=== PATIENT | female | born 1990 | race American Indian/Alaskan Native ===

== ENCOUNTER → 2017-10-25 | Emergency (ER) | payer OTHER ==
[~2017-10-25] VITALS: Ht 167.6 cm; Wt 120.7 kg
[~2017-10-25] MED LIST: AVIANE1 EACH PO; BIRTH CONTROL; IBUPROFEN800 MG PO; KEFLEX500 MG PO; LORAZEPAM1 MG PO; NAPROSYN500 MG PO; NORCO 10-325 T1 EACH PO; ROBAXIN-750750 MG PO; ZOFRAN ODT4 MG PO
--- NOTE | 2017-10-26 15:31 | EKG ---
[facility] [address] [facility] [place] [address] Signed Normal sinus rhythm Normal ECG No previous ECGs available Confirmed by MINNIE BARAJAS MD ([id number]) on 10/26/2017 3:31:11 PM Electronically Signed By: MINNIE BARAJAS MD 10/26/17 1531 PATIENT NAME: JOAO GUAMAN CHIQUITA Electrocardiogram DATE OF : [birth year] PHYSICIAN: MINNIE BARAJAS MD REPORT #: [id number] REPORT IS CONFIDENTIAL AND NOT TO BE RELEASED WITHOUT AUTHORIZATION
== END ==
LOC: ED 16:14
DX: R07.9 Chest pain, unspecified (principal); F41.9 Anxiety disorder, unspecified; R06.4 Hyperventilation; F17.200 Nicotine dependence, unspecified, uncomplicated; Z79.899 Other long term (current) drug therapy
CPT/HCPCS: 71046; 93005; 93010; 96372; 99283; J1885

== ENCOUNTER 2018-04-24 04:16 | Emergency (ER) | payer OTHER ==
[~2018-04-24] VITALS: Ht 167.6 cm; Wt 122.5 kg
[2018-04-24] MEDS ORDERED: ADVAIR HFA 115-12 GM INH (04:26)
== END 2018-04-24 06:59 | disposition home or self-care (01) ==
LOC: ED 04:16
DX: K59.00 Constipation, unspecified (principal); J45.909 Unspecified asthma, uncomplicated; F41.9 Anxiety disorder, unspecified; Z87.891 Personal history of nicotine dependence; Z79.899 Other long term (current) drug therapy
CPT/HCPCS: 74177; 80053; 81001; 83690; 84703; 85025; 96374; 96375; 99284-25; J2270; J2405; Q9967

== ENCOUNTER 2020-04-09 12:14 | Emergency (ER) | payer OTHER ==
[~2020-04-09] VITALS: Ht 167.6 cm; Wt 142.9 kg
[~2020-04-09 12:14] MED LIST changes: +ADVAIR HFA 115-12 GM INH
[2020-04-09] MEDS ORDERED: CETIRIZINE HCL10 MG PO (12:43)
[2020-04-09] MEDS ORDERED: GEN7T1 EACH TP (12:44)
[2020-04-09] MEDS ORDERED: CYCLOBENZAPRINE10 MG PO (15:54)
[2020-04-09] MEDS ORDERED: LIDODERM1 EACH TOP (15:54)
== END 2020-04-09 17:31 | disposition home or self-care (01) ==
LOC: ED 12:14
DX: M54.5 Low back pain (principal); F41.9 Anxiety disorder, unspecified; J45.909 Unspecified asthma, uncomplicated; Z87.891 Personal history of nicotine dependence; Z88.8 Allergy status to other drugs, medicaments and biological substances
CPT/HCPCS: 96372; 99283; A9270; J1885

== ENCOUNTER 2020-08-09 12:54 | Emergency (ER) | payer OTHER ==
[~2020-08-09] VITALS: Ht 167.6 cm; Wt 142.9 kg
[~2020-08-09 12:54] MED LIST changes: +CETIRIZINE HCL10 MG PO; +CYCLOBENZAPRINE10 MG PO; +GEN7T1 EACH TP; +LIDODERM1 EACH TOP
[2020-08-09] MEDS ORDERED: HYDROCODON-ACE1 EA10 PO (17:45)
[2020-08-09] MEDS ORDERED: PRILOSEC OTC20 MG PO (17:45)
== END 2020-08-09 18:15 | disposition home or self-care (01) ==
LOC: ED 12:54
DX: K21.9 Gastro-esophageal reflux disease without esophagitis (principal); N20.0 Calculus of kidney; J45.909 Unspecified asthma, uncomplicated; Z87.891 Personal history of nicotine dependence; Z79.899 Other long term (current) drug therapy
CPT/HCPCS: 74176; 80053; 81001; 83690; 84703; 85025; 96374; 96375; 99284-25; J1885; J2270; J2405

== ENCOUNTER 2021-09-29 06:36 | Emergency (ER) | payer OTHER ==
[~2021-09-29] VITALS: Ht 167.6 cm; Wt 156.0 kg
[~2021-09-29 06:36] MED LIST changes: +HYDROCODON-ACE1 EA10 PO; +PRILOSEC OTC20 MG PO
== END 2021-09-29 10:45 | disposition home or self-care (01) ==
LOC: ED 06:36
DX: U07.1 COVID-19 (principal); J44.9 Chronic obstructive pulmonary disease, unspecified; Z87.891 Personal history of nicotine dependence; Z79.899 Other long term (current) drug therapy
CPT/HCPCS: 36415; 80053; 84703; 85025; 87502; 96361; 96374; 96375; 99284-25; C9803; J1170; J1885; J2405; J7030; U0003

== ENCOUNTER 2022-01-12 07:04 | Emergency (ER) | payer OTHER ==
[~2022-01-12] VITALS: Ht 167.6 cm; Wt 153.0 kg
[2022-01-12] MEDS ORDERED: VENTOLIN HFA18 GM INH (07:22)
[2022-01-12] MEDS ORDERED: PREDNISONE20 MG PO (09:59)
[2022-01-12] MEDS ORDERED: NAPROSYN500 MG PO (09:59)
--- NOTE | 2022-01-14 19:28 | EKG ---
[facility] [place] [facility] [address] [facility] [place] [address] Signed Normal sinus rhythm Nonspecific T wave abnormality Abnormal ECG When compared with ECG of 25-OCT-2017 16:18, Nonspecific T wave abnormality now evident in Lateral leads Confirmed by Destiny Jimenez MD () on 01/14/2022 7:27:52 PM Electronically Signed By: DESTINY JIMENEZ MD 01/14/221927 PATIENT NAME: GUAMANJOAO Electrocardiogram DATE OF : [birth year] PHYSICIAN: DESTINY JIMENEZ MD REPORT #: [id number] REPORT IS CONFIDENTIAL AND NOT TO BE RELEASED WITHOUT AUTHORIZATION
== END 2022-01-12 10:17 | disposition home or self-care (01) ==
LOC: ED 07:04
DX: U07.1 COVID-19 (principal); R09.1 Pleurisy; J45.909 Unspecified asthma, uncomplicated; Z87.891 Personal history of nicotine dependence; Z79.899 Other long term (current) drug therapy
CPT/HCPCS: 36415; 71045; 80053; 83690; 84484; 85025; 85379; 87502; 93005; 93010; 94664; 96374; 96375; 99285-25; C9803; J1100; J1885; U0003

== ENCOUNTER 2022-08-03 06:56 | Day surgery (SDC) | payer OTHER ==
[2022-07-27 09:04] VITALS: BP 125/72
[~2022-08-03] VITALS: Ht 167.6 cm; Wt 154.5 kg
[~2022-08-03 06:56] MED LIST changes: +PREDNISONE20 MG PO; +VENTOLIN HFA18 GM INH
[2022-08-03 07:14] VITALS: BP 108/66
--- NOTE | 2022-08-03 09:59 | NUR ---
08/03/22 0959 Eileen Fairbanks SN 0943 PATIENT ARRIVES TO PACU AWAKE BUT CONFUSED. CRYING AND DIFFICULT TO REDIRECT. RESP EVEN AND UNLABORED. MASK AT 8 LITERS. WHEN ASKED IF HAVING PAIN UNABLE TO VERBALIZE BUT HELD UP 10 FINGERS. USE OF BEDSIDE SUCTION.
--- NOTE | 2022-08-03 10:46 | NUR ---
PT ALERT, ORIENTED AND VERY ANXIOUS ABOUT TODAY. SPENT TIME DEBRIEFING, COMFORTING AND GIVING SUPPORT. HAD PRAYER WITH PT, REQUESTED PRAYER, A WARM BLANKET. RIDE ARRANGED FROM [facility]. VERN MOREL WILL CHECK ON PT AT HOME. DATA MIGRATION LEAD WILL VISIT WITH PT, HELP WITH ANXIOUSNESS. WILL FOLLOW
[2022-08-03 11:10] VITALS: BP 127/62
[2022-08-03 11:54] VITALS: BP 130/75
--- NOTE | 2022-08-03 11:57 | NUR ---
1110: PT RETURNS TO UNIT VIA STRETCHER FROM PACU. AWAKE AND ALERT ON ARRIVAL. CHOOSES NOT TO SPEAK, WRITES ON PAPER TO COMMUNICATE. WHIMPERS WITH PAIN. WRITES 6/10 PAIN LEVEL. DISCUSSED PAIN MANAGEMENT AND PT NODS. ICE WATER AND JELLO PROVIDED. VSS, RESP EVEN AND UNLABORED. O2 SAT STABLE, >94% ON 2L VIA NC. SCDS IN PLACE. WARM BLANKETS PROVIDED REQUESTED. NO FURTHER NEEDS AT THIS TIME
--- NOTE | 2022-08-03 11:58 | NUR ---
LE 1140 INTO PATIENT ROOM. PATIENT ACTIVELY VOMITING. 400 EMESIS GREEN/ORANGE IN COLOR. PATIENT NEEEDING TO USE THE RESTROOM. BEDSIDE COMMODE. PATIENT VOIDED 300 CLEAR AND YELLOW URINE.
--- NOTE | 2022-08-03 12:01 | NUR ---
1145: TC PLACED TO MD KENNETH AND NEW ORDER RECEIVED TO ADMINISTERED 4MG ZOFRAN IV ONCE. NO FURTHER ORDERS AT THIS TIME 1150: TC PLACED TO SISTER REQUESTED BY PT. UPDATE PROVIDED AND SISTER TO ARRIVE AROUND 1300. [place] TAKE [place] HOME [place]
--- NOTE | 2022-08-03 12:43 | NUR ---
LE 1209 PATIENT STATES NAUSEA HAS IMPROVED. PATIENT PAIN STILL A 9/10 AND LORTAB ELIXIR GIVEN. PATIENT TEARFUL WRITING "IT HURTS" ON A CLIPBOARD. PATIENT GIVEN BEAR HUGGER AND LIGHTS TURNED OFF IN ROOM. PATIENT ALERT AND ORIENTED. BREATHING EQUAL AND UNLABORED. OXYGEN SATURATIONS ABOVE 90% ON ROOM AIR. SCD'S ON AND IVF INFUSING. NO RED DRAINAGE AT THIS TIME FROM SURGICAL SITE. CALL LIGHTWITHIN REACH NO FUTHER NEEDS. NO QUESTIONS AT THIS TIME.
[2022-08-03 13:05] VITALS: BP 132/72
--- NOTE | 2022-08-03 15:17 | NUR ---
LE 1245 PATIENT WRITES ON CLIPBOARD "MY PAIN FEELS BETTER." PATIENT IS ALERT AND ORIENTED. BREATHING EQUAL AND UNLABORED. OXYGEN SATURATIONS ABOVE 90% ON ROOM AIR. PATIENT DENIES FEELING NAUSEATED. PATIENT EDUCATED ON SIGNS AND SYMPTOMS OF BLEEDING. PATIENT HAS NO QUESTIONS. CALL LIGHT WITHIN REACH NO FUTHER NEEDS.
--- NOTE | 2022-08-03 16:28 | NUR ---
LE 1300 PATIENT UP AMBULATING IN ROOM. PATIENT WAITING ON RIDE FROM SISTER. PATIENT TOLERATED AMBULATION WELL. LE 1335 PATIENT SISTER AT FACILITY. PATIENT STATES PAIN IS A 7/10 BUT TOLERABLE. PATIENT STATED "I WOULD LIKE TO GO HOME TO MY FUR BABIES." PATIENT ABLE TO DRESS SELF AND TOLERATED IT WELL. DENIES FEELING NAUSEATED. PATIENT IV D/C'D WNL. PATIENT DISCHARGE INSTRUCTIONS GIVEN AND UNDERSTOOD. NO QUESTIONS AT THIS TIME. PATIENT WAS WHEELED OUT OF FACILITY WITH SISTER. PERSCRIPTION GIVEN TO SISTER. NO FUTHER NEEDS.
[2022-08-04] MEDS ORDERED: ONDANSETRON ODT8 MG PO (00:05)
[2022-08-04] MEDS ORDERED: PROMETHAZINE HC25 MG PR (00:05)
[2022-08-04] MEDS ORDERED: HYDROCODONE-AC118 M1 PO (00:05)
--- NOTE | 2022-08-04 16:01 | PATH ---
[facility] [address] [facility] [place], [place] [address] Signed SPECIMEN(S): A BILATERAL TONSILS SPECIMEN SOURCE: A. BILATERAL TONSILS CLINICAL HISTORY: Sleep apnea, tonsillar hypertrophy. FINAL PATHOLOGIC DIAGNOSIS: Bilateral tonsils: - Howell tonsils with focal acute epithelial inflammation (tonsillitis). 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 JVR:sm:C2NR MICROSCOPIC EXAMINATION: Histologic sections of all submitted blocks are examined by light microscopy. These findings, together with the gross examination, support the pathologic diagnosis. GROSS DESCRIPTION: The specimen, labeled and designated "Guaman," and designated on the requisition "left and right tonsils," is received in formalin and consists of two littlejohn-pink to red-brown undesignated tonsils (3.0 x 2.4 x 1.7 cm, and 2.8 x 2.4 x 1.6 cm). One tonsil is arbitrarily inked blue. Both tonsils are serially sectioned to reveal littlejohn-pink to red-brown soft cut surfaces. A marketing development representative section of each tonsil is submitted in cassette (A1). AC (under the direct supervision of a pathologist) The Gross Description was prepared using a voice recognition system. The report was reviewed for accuracy; however, sound-alike word errors, addition and/or deletions may occur. If there is any question about this report, please contact Client Services. PERFORMING LABORATORY: The technical component was performed by [facility], [address] [place] [id number] (CLIA# [id number]). Professional interpretation was performed by [facility] - [facility], [address] [place] [id number] (CLIA#: [id number]). Diagnostician: Robby Gray MD Pathologist PATIENT NAME: JOAO GUAMAN PATHOLOGY DATE OF : [birth year] REPORT #: [id number] PHYSICIAN: [facility] PCP: [facility] REPORT IS CONFIDENTIAL AND NOT TO BE RELEASED WITHOUT AUTHORIZATION [address] [place], [place] [address] Signed Electronically Signed 08/04/2022 Copies: ~ PATIENT NAME: JOAO GUAMAN PATHOLOGY DATE OF : [birth year] REPORT #: [id number] PHYSICIAN: [facility] PCP: [facility] REPORT IS CONFIDENTIAL AND NOT TO BE RELEASED WITHOUT AUTHORIZATION
--- NOTE | 2022-08-10 10:12 | OR ---
[facility] [address] [place], [place] [address] Signed DATE OF OPERATION: 08/03/2022 SURGEON: Sergio Francois MD PREOPERATIVE DIAGNOSES: Chronic tonsillitis, tonsillar hypertrophy, obstructive sleep apnea. POSTOPERATIVE DIAGNOSES: Chronic tonsillitis, tonsillar hypertrophy, obstructive sleep apnea. PROCEDURE: Tonsillectomy. ANESTHESIA: General orotracheal, INTERNAL GRINDER TENDER, Pablo. PREOPERATIVE HISTORY: Elsa is a 32-year-old lady with morbid obesity, obstructive sleep apnea, chronic tonsillitis, tonsillar hypertrophy, taken to the operating room for the above-mentioned procedures. OPERATIVE PROCEDURE AND FINDINGS: After informed consent, the patient was taken to the operating room, placed in the supine position where general orotracheal anesthesia was induced. The patient and procedure were verified. The patient was repositioned. McIvor mouth gag placed into suspension. Headlight exam of the pharynx showed markedly restricted airway with a very large tongue high-riding and extensive tonsillar hypertrophy, tonsillolithiasis. The right tonsil was grasped with a tenaculum, retracted medially and removed from its fossa with mucosal sparing incision with Coblation. Same procedure on the left tonsil. Left tonsil had more bleeding and required conversion to a suction cautery. Hemostasis was obtained. Pharynx suctioned clear blood and secretions. Mouth gag was released for several minutes. Reinspection showed no bleeding points. The mouth gag was removed. The patient was awakened, extubated, transported to recovery room in good condition. No complications. BLOOD LOSS: Around 200 mL. SPECIMEN: To pathology. Electronically Signed By: SERGIO FRANCOIS MD 08/10/22 1012 PATIENT NAME: ELSA GUAMAN OPERATIVE REPORT DATE OF : [birth year] REPORT #: [id number] PHYSICIAN: SERGIO FRANCOIS MD PCP: [facility] REPORT IS CONFIDENTIAL AND NOT TO BE RELEASED WITHOUT AUTHORIZATION [address] [address] Signed DRAINS: None. Sergio Francois MD GC/MODL /[id number] Copies: ~ Electronically Signed By: SERGIO FRANCOIS MD 08/10/22 1012 PATIENT NAME: ELSA GUAMAN OPERATIVE REPORT DATE OF : [birth year] REPORT #: [id number] PHYSICIAN: SERGIO FRANCOIS MD PCP: [facility] REPORT IS CONFIDENTIAL AND NOT TO BE RELEASED WITHOUT AUTHORIZATION
== END 2022-08-03 13:35 | disposition home or self-care (01) ==
LOC: OPS 06:56 → DS 06:56 → OPS 08:30
PROVIDERS: ATTEND Otolaryngology
PROC: 0CBPXZZ Excision of Tonsils, External Approach (ICD-10-PCS; principal; 2022-08-03 08:30)
DX: J03.90 Acute tonsillitis, unspecified (principal); J35.01 Chronic tonsillitis; G47.33 Obstructive sleep apnea (adult) (pediatric); E66.01 Morbid (severe) obesity due to excess calories; J45.909 Unspecified asthma, uncomplicated
CPT/HCPCS: 00170; J0131; J0330; J1100; J1170; J2250; J2405; J2704; J3010; J7121

== ENCOUNTER 2022-08-03 22:16 | Emergency (ER) | payer OTHER ==
[~2022-08-03] VITALS: Ht 167.6 cm; Wt 154.2 kg
[2022-08-04] MEDS ORDERED: PROMETHAZINE HC25 MG PR (00:05)
[2022-08-04] MEDS ORDERED: ONDANSETRON ODT8 MG PO (00:05)
[2022-08-04] MEDS ORDERED: HYDROCODONE-AC118 M1 PO (00:05)
== END 2022-08-04 00:38 | disposition home or self-care (01) ==
LOC: ED 22:16
DX: K91.841 Postprocedural hemorrhage of a digestive system organ or structure following other procedure (principal); Y83.9 Surgical procedure, unspecified as the cause of abnormal reaction of the patient, or of later complication, without mention of misadventure at the time of the procedure; J45.909 Unspecified asthma, uncomplicated; Z87.891 Personal history of nicotine dependence; Z88.8 Allergy status to other drugs, medicaments and biological substances; Z79.899 Other long term (current) drug therapy
CPT/HCPCS: 36415; 85025; A9270; J1790; J2270; J2405

== ENCOUNTER 2023-04-14 13:00 | Emergency (ER) | payer OTHER ==
[~2023-04-14] VITALS: Ht 167.6 cm; Wt 154.2 kg
[~2023-04-14 13:00] MED LIST changes: +HYDROCODONE-AC118 M1 PO; +ONDANSETRON ODT8 MG PO; +PROMETHAZINE HC25 MG PR
[2023-04-14 14:38] VITALS: BP 145/101
== END 2023-04-14 14:40 | disposition home or self-care (01) ==
LOC: ED 13:00
DX: Z02.89 Encounter for other administrative examinations (principal); Z88.8 Allergy status to other drugs, medicaments and biological substances
CPT/HCPCS: 99283

== ENCOUNTER 2024-08-19 15:10 | Emergency (ER) | payer OTHER ==
[~2024-08-19] VITALS: Ht 167.6 cm; Wt 149.9 kg
[2024-08-19] MEDS ORDERED: ONDANSETRON 4 MG TAB ODT SL ONE (15:45)
[2024-08-19] MEDS ORDERED: HYDROCODONE/ACETA 5/325 TAB PO ONE (15:45)
[2024-08-19] MEDS ORDERED: HYDROCODON-ACE1 EA10 PO (15:48)
[2024-08-19 16:03] VITALS: BP 132/91
== END 2024-08-19 16:37 | disposition home or self-care (01) ==
LOC: ED 15:10
DX: M54.50 Low back pain, unspecified (principal); G89.29 Other chronic pain; J45.909 Unspecified asthma, uncomplicated; Z79.899 Other long term (current) drug therapy; Z88.8 Allergy status to other drugs, medicaments and biological substances; Z87.891 Personal history of nicotine dependence
CPT/HCPCS: 99283; A9270

== ENCOUNTER 2024-10-30 08:32 | Emergency (ER) | payer OTHER ==
[~2024-10-30] VITALS: Ht 167.6 cm; Wt 152.0 kg
[2024-10-30] MEDS ORDERED: PREDNISONE20 MG PO (10:42)
[2024-10-30] MEDS ORDERED: predniSONE 20 MG TAB PO ONE (10:45)
[2024-10-30] MEDS ORDERED: KETOROLAC TROMETHAMINE 60 MG/2 ML VIAL IM ONE (10:45)
[2024-10-30 11:11] VITALS: BP 155/97
== END 2024-10-30 11:11 | disposition home or self-care (01) ==
LOC: ED 08:32
DX: M54.50 Low back pain, unspecified (principal); J45.909 Unspecified asthma, uncomplicated; Z79.899 Other long term (current) drug therapy; Z88.8 Allergy status to other drugs, medicaments and biological substances; Z87.891 Personal history of nicotine dependence
CPT/HCPCS: 83605; 96372; 99283; J1885; J7512

== ENCOUNTER 2025-01-20 05:51 | Emergency (ER) | payer OTHER ==
[~2025-01-20] VITALS: Ht 167.6 cm; Wt 158.2 kg
[2025-01-20] MEDS ORDERED: ALBUTEROL/IPRATROPIUM 3 ML NEB INH ONE (06:30)
[2025-01-20] MEDS ORDERED: ACETAMINOPHEN 500 MG TAB PO ONE (06:30)
[2025-01-20 07:19] LABS: INFLUENZA B NAA NEGATIVE (NEGATIVE); RESPIRATORY SYNCYTIAL VIR NAA NEGATIVE (NEGATIVE)
[2025-01-20] MEDS ORDERED: PAXLOVID 300-11 EAC1 PO (07:30)
[2025-01-20 07:45] VITALS: BP 142/86
== END 2025-01-20 07:45 | disposition home or self-care (01) ==
LOC: ED 05:51
PROVIDERS: Internal Medicine
DX: U07.1 COVID-19 (principal); J06.9 Acute upper respiratory infection, unspecified; J45.909 Unspecified asthma, uncomplicated; Z79.899 Other long term (current) drug therapy; Z88.8 Allergy status to other drugs, medicaments and biological substances; Z87.891 Personal history of nicotine dependence
CPT/HCPCS: 87502; 94640; 99283; A9270; U0002

== ENCOUNTER 2025-01-27 11:18 | Emergency (ER) | payer OTHER ==
[~2025-01-27] VITALS: Ht 167.6 cm; Wt 160.0 kg
[~2025-01-27 11:18] MED LIST changes: +PAXLOVID 300-11 EAC1 PO
--- OUTSIDE RECORDS SUMMARY | 2025-01-27 11:24 | XMS ---
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 Deana has no Care Guidelines for this patient. Sukhwinder VISIT COUNT (12 MO.) 4 MELL [facility] Shelly Chiang (Walker Cardoso) TOTAL 5 NOTE: Visits indicate total known visits. ED/C VISIT TRACKING (12 MO.) 01/27/2025 11:18 [facility] [place] TYPE: Emergency COMPLAINT: - BACK PAIN 01/20/2025 05:52 [facility] [place] TYPE: Emergency COMPLAINT: - FLU SYMPTOMS DIAGNOSES: - Acute upper respiratory infection, unspecified - Allergy status to other drugs, medicaments and biological substances - Cough, unspecified - COVID-19 - Other exterminator helper (current) drug therapy - Personal history of nicotine dependence - Unspecified asthma, uncomplicated 10/30/2024 08:32 [facility] [place] TYPE: Emergency COMPLAINT: - BACK PAIN DIAGNOSES: - Allergy status to other drugs, medicaments and biological substances - Low back pain, unspecified - Other skilled nursing (current) drug therapy - Personal history of nicotine dependence - Unspecified asthma, uncomplicated 08/30/2024 15:15 [facility] Shelly DUDLEY (Walker Cardoso) TYPE: Emergency DIAGNOSES: - Low back pain, unspecified - Muscle spasm of back - Strain of muscle, fascia and tendon of lower back, initial encounter - Back Pain - lower back pain 08/19/2024 15:11 [facility] [place] TYPE: Emergency COMPLAINT: - BACK INJURY DIAGNOSES: - Allergy status to other drugs, medicaments and biological substances - Dorsalgia, unspecified - Low back pain, unspecified - Other chronic pain - Other skilled nursing (current) drug therapy - Personal history of nicotine dependence - Unspecified asthma, uncomplicated INPATIENT VISIT TRACKING (12 MO.) No inpatient visits to display in this time frame [email or web address]
[2025-01-27] MEDS ORDERED: OXYCODONE/APAP 5/325 TAB PO ONE (11:45)
[2025-01-27] MEDS ORDERED: predniSONE 20 MG TAB PO ONE (11:45)
[2025-01-27] MEDS ORDERED: CYCLOBENZAPRINE HCL 10 MG TAB PO ONE (11:45)
[2025-01-27] MEDS ORDERED: IBUPROFEN 600 MG TAB PO ONE (11:45)
[2025-01-27 13:03] VITALS: BP 111/72
== END 2025-01-27 13:03 | disposition home or self-care (01) ==
LOC: ED 11:18
DX: M54.42 Lumbago with sciatica, left side (principal); J45.909 Unspecified asthma, uncomplicated; Z87.891 Personal history of nicotine dependence; Z88.8 Allergy status to other drugs, medicaments and biological substances; Z79.899 Other long term (current) drug therapy
CPT/HCPCS: 99283; A9270; J7512

== ENCOUNTER 2025-03-29 05:24 | Emergency (ER) | payer OTHER ==
[~2025-03-29] VITALS: Ht 167.6 cm; Wt 164.4 kg
[2025-03-29] MEDS ORDERED: PSEUDOEPHEDRINE HCL 30 MG TAB PO ONE (05:45)
[2025-03-29] MEDS ORDERED: KETOROLAC TROMETHAMINE 60 MG/2 ML VIAL IM ONE (05:45)
[2025-03-29] MEDS ORDERED: CYCLOBENZAPRINE HCL 10 MG TAB PO ONE (05:45)
[2025-03-29 06:35] LABS: INFLUENZA B NAA NEGATIVE (NEGATIVE); RESPIRATORY SYNCYTIAL VIR NAA NEGATIVE (NEGATIVE)
[2025-03-29] MEDS ORDERED: CYCLOBENZAPRINE HCL 10 MG HOME.PACK PO ONE (06:45)
[2025-03-29] MEDS ORDERED: BENZONATATE100 MG PO (06:45)
[2025-03-29] MEDS ORDERED: ALBUTEROL SULFATE 8 GM HOME.PACK INH ONE (06:45)
[2025-03-29] MEDS ORDERED: OSELTAMIVIR PHOSPHATE 75 MG HOME.PACK PO ONE (06:45)
[2025-03-29] MEDS ORDERED: GUAIFENESIN/CODEINE 60 ML HOME.PACK PO ONE (06:45)
[2025-03-29] MEDS ORDERED: CYCLOBENZAPRINE10 MG PO (06:45)
[2025-03-29 06:57] VITALS: BP 128/99
== END 2025-03-29 07:17 | disposition home or self-care (01) ==
LOC: ED 05:24
PROVIDERS: Family Medicine
DX: J10.1 Influenza due to other identified influenza virus with other respiratory manifestations (principal); J45.909 Unspecified asthma, uncomplicated; Z79.899 Other long term (current) drug therapy; Z88.8 Allergy status to other drugs, medicaments and biological substances; Z87.891 Personal history of nicotine dependence
CPT/HCPCS: 71045; 87502; 94664; 96372; 99283-25; A9270; J1885; U0002

== ENCOUNTER 2025-04-04 07:15 | Emergency (ER) | payer OTHER ==
[~2025-04-04] VITALS: Ht 167.6 cm; Wt 165.6 kg
[~2025-04-04 07:15] MED LIST changes: +BENZONATATE100 MG PO
--- OUTSIDE RECORDS SUMMARY | 2025-04-04 07:22 | XMS ---
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 Deana has no Care Guidelines for this patient. Sukhwinder VISIT COUNT (12 MO.) 6 MELL [facility] Shelly Chiang (Walker Cardoso) TOTAL 7 NOTE: Visits indicate total known visits. ED/C VISIT TRACKING (12 MO.) 04/04/2025 07:15 [facility] [place] TYPE: Emergency COMPLAINT: - CHEST TIGHTNESS 03/29/2025 05:24 [facility] [place] TYPE: Emergency COMPLAINT: - COLD SYMPTOMS DIAGNOSES: - Allergy status to other drugs, medicaments and biological substances - Cough, unspecified - Influenza due to other identified influenza virus with other respiratory manifestations - Other chcf (current) drug therapy - Personal history of nicotine dependence - Unspecified asthma, uncomplicated 01/27/2025 11:18 [facility] [place] TYPE: Emergency COMPLAINT: - BACK PAIN DIAGNOSES: - Allergy status to other drugs, medicaments and biological substances - Low back pain, unspecified - Lumbago with sciatica, left side - Other chcf (current) drug therapy - Personal history of nicotine dependence - Unspecified asthma, uncomplicated 01/20/2025 05:52 [facility] [place] TYPE: Emergency COMPLAINT: - FLU SYMPTOMS DIAGNOSES: - Acute upper respiratory infection, unspecified - Allergy status to other drugs, medicaments and biological substances - Cough, unspecified - COVID-19 - Other long term care administrator (current) drug therapy - Personal history of nicotine dependence - Unspecified asthma, uncomplicated 10/30/2024 08:32 [facility] [place] TYPE: Emergency COMPLAINT: - BACK PAIN DIAGNOSES: - Allergy status to other drugs, medicaments and biological substances - Low back pain, unspecified - Other chcf (current) drug therapy - Personal history of nicotine dependence - Unspecified asthma, uncomplicated [facility] DIAGNOSES: - [...] unspecified - Other chronic pain - Other chcf (current) drug therapy - Personal history of nicotine dependence - Unspecified asthma, uncomplicated INPATIENT VISIT TRACKING (12 MO.) No inpatient visits to display in this time frame [email or web address]
[2025-04-04] MEDS ORDERED: predniSONE 20 MG TAB PO ONE ×2 (07:45→08:00)
[2025-04-04] MEDS ORDERED: ALBUTEROL/IPRATROPIUM 3 ML NEB INH ONE (07:45)
[2025-04-04] MEDS ORDERED: PREDNISONE20 MG PO (09:21)
[2025-04-04 09:29] VITALS: BP 112/79
== END 2025-04-04 09:29 | disposition home or self-care (01) ==
LOC: ED 07:15
DX: J45.901 Unspecified asthma with (acute) exacerbation (principal); Z88.8 Allergy status to other drugs, medicaments and biological substances; Z79.899 Other long term (current) drug therapy
CPT/HCPCS: 71046; 94640; 99285-25; J7512